=== PATIENT | female | born 1990 | race Hispanic/Latino ===

== ENCOUNTER 2016-05-30 11:16 | Emergency (ER) | payer SELFPAY ==
[~2016-05-30] VITALS: Ht 162.6 cm; Wt 69.5 kg
[2016-05-30] MEDS ORDERED: LORTAB 5-325 MG1 TAB PO (12:11)
[2016-05-30] MEDS ORDERED: MOTRIN800 MG PO (12:11)
[2016-05-30 12:18] VITALS: BP 126/78
[2016-05-30] MEDS ORDERED: METFORMIN HCL1000 MG PO (12:20)
[2016-05-30] MEDS ORDERED: SYNTHROID75 MCG PO (12:20)
== END 2016-05-30 12:34 | disposition home or self-care (01) | DRG 605 ==
LOC: ED 11:16
PROC: 2W3QX1Z Immobilization of Right Lower Leg using Splint (ICD-10-PCS; principal; 2016-05-30)
DX: S90.01XA Contusion of right ankle, initial encounter (principal); M25.471 Effusion, right ankle; S40.811A Abrasion of right upper arm, initial encounter; S90.511A Abrasion, right ankle, initial encounter; S80.211A Abrasion, right knee, initial encounter; V86.49XA Person injured while boarding or alighting from other special all-terrain or other off-road motor vehicle, initial encounter; Y93.89 Activity, other specified; Y92.833 Campsite as the place of occurrence of the external cause